=== PATIENT | female | born 1950 | race Caucasian/White ===

== ENCOUNTER 2016-09-12 19:30 | Emergency (ER) | payer MEDICARE, BC ==
--- NOTE | 2016-09-12 20:36 | ERNOTE ---
Date of Service: 09/12/16 Time Seen by Provider: 09/12/16 20:35 Stated Complaint: SINUS Presenting Symptoms:: cough, sore throat, runny nose Source: patient, RN notes reviewed Exam Limitations: no limitations Allergies/Adverse Reactions: Allergies codeine [Codeine] Adverse Reaction (Severe, Verified 11/10/12 09:13) Vomiting Home Medications: HOME MEDICATIONS Amox Tr/Potassium Clavulanate [Augmentin 875-125 Tablet] 875 mg PO Q12H #20 tab 09/12/16 [Last Taken Unknown] Cholecalciferol (Vitamin D3) [Vitamin D3] 5,000 unit PO DAILY 09/12/16 [Last Taken Unknown] Cyanocobalamin (Vitamin B-12) [Vitamin B12] 2,500 mcg PO DAILY 09/12/16 [Last Taken Unknown] Levocetirizine Dihydrochloride 5 mg PO BID 09/12/16 [Last Taken Unknown] Prednisone 100 mg PO DAILY 09/12/16 [Last Taken Unknown] - History of Present Ilness Narrative: 66 y/o female ambulatory to the ED for URI symptoms that began 2 days ago. She has been taking an OTC decongestant without improvement. She has been having fevers and sinus pain. She complains of being unable to sleep at night because of her nasal congestion. Date (Duration): 09/10/16 Timing: getting worse Severity: severe Frequency/Possible Cause: Reports: occasional episodes, unknown cause Modifying Factors - Improves: Reports: nothing Modifying Factors - Worsens: Reports: lying down Associated Symptoms: Reports: cough, facial pain, nasal congestion, nasal drainage, headache, sore throat, muscle aches, fever/chills. Denies: chest pain /soreness, shortness of breath, wheezing, dizziness, lightheadedness, earache Prior Treatment: Denies: recently seen, currently on antibiotics Review of Systems - Review of Systems Constitutional: Present: fever, chills, fatigue, malaise. Absent: recent illness EYE: Present: no symptoms reported ENT: Present: nose congestion, nasal drainage, sore throat. Absent: ear pain, ear discharge Respiratory: Present: cough. Absent: shortness of breath, wheezing Cardiology: Absent: chest pain, syncope Gastrointestinal/Abdominal: Absent: nausea, vomiting, diarrhea, abdominal pain Genitourinary: Present: no symptoms reported Musculoskeletal: Present: muscle pain. Absent: neck pain Skin: Absent: rash, lesions Neurological: Present: headache. Absent: dizziness/light-headedness Endocrine: Present: no symptoms reported Hematologic/Lymphatic: Present: no symptoms reported Psych: Present: no symptoms reported - Patient's Past Medical History Patient History - Medical: Obesity, Other - Sinusitis, seasonal allergies Patient History - Cardiac/Respiratory: No pertinent hx Patient History - Cancer: No Hx of Cancer Patient History - Surgical Procedures: Noncontributory LMP (females 10-50): Menopausal - Social History Living Situations: home Smoking Status: Never smoker Alcohol Use: none Drug Use: none - Immunizations History of Influenza Vaccine: No Physical Exam - Physical Exam General Appearance: Present: wd/wn, alert, no apparent distress, obese Eye Exam: Normal inspection: bilateral Ears, Nose, Throat: Present: hearing grossly normal, nasal congestion, sinus pain/drainage, pharyngeal erythema. Absent: abnormal TM (R), abnormal TM (L) Neck: Present: supple, full range of motion, lymphadenopathy (R), lymphadenopathy (L) Respiratory: Present: no respiratory distress, normal breath sounds, no accessory muscle use, lungs clear Cardiovascular/Chest: Present: regular rate, rhythm, no murmur Neurological Exam: Present: alert, oriented, normal mood/affect, no motor/ sensory deficits Skin Exam: Present: normal color, warm/dry ED Progress - Results and Orders Patient's Lab Results:: I have reviewed the patient's lab results. - Vital Signs Patient's Vital Signs:: I have reviewed the patient's vital signs. Plan - Plan Plan: Negative for influenza, will treat as sinusitis as patient has fever and severe sinus pain/congestion. Departure - Departure Clinical Impression: Sinusitis, acute Qualifiers: Sinusitis location: other Recurrence: non-recurrent Qualified Code(s): J01.80 - Other acute sinusitis Disposition: Home self-care Condition: Stable Instructions: Sinusitis, Adult, [id number] Referrals: Dora Reis CNP [Primary Care Provider] - Prescriptions: Amox Tr/Potassium Clavulanate [Augmentin 875-125 Tablet] 875 mg PO Q12H #20 tab
[2016-09-12] MEDS ORDERED: ACETAMINOPHEN 325 MG TABLET PO ONE (20:42)
[2016-09-12] MEDS ORDERED: ACETAMINOPHEN 325 MG TABLET ONE (21:02)
[2016-09-12] MEDS ORDERED: AMOX TR/POTASSIUM CLAVULANATE 875 MG TABLET PO ONE (21:32)
[2016-09-12] MEDS ORDERED: AMOX TR/POTASSIUM CLAVULANATE 875 MG TABLET ONE (21:35)
[2016-09-12 21:48] VITALS: BP 138/74
== END 2016-09-12 21:38 | disposition home or self-care (01) ==
LOC: ER 19:30
DX: J01.80 Other acute sinusitis (principal)